=== PATIENT | female | born 1985 | race American Indian/Alaskan Native ===

== ENCOUNTER 2017-03-09 06:49 | Emergency (ER) | payer MEDICAID ==
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
[2017-03-09 12:36] VITALS: BP 118/66
== END 2017-03-09 12:35 | disposition home or self-care (01) ==
LOC: ED 06:49
DX: O9A.211 Injury, poisoning and certain other consequences of external causes complicating pregnancy, first trimester (principal); S02.82XA Fracture of other specified skull and facial bones, left side, initial encounter for closed fracture; E66.9 Obesity, unspecified; Z3A.01 Less than 8 weeks gestation of pregnancy; Y04.8XXA Assault by other bodily force, initial encounter; Y93.89 Activity, other specified; Y99.9 Unspecified external cause status; Y92.89 Other specified places as the place of occurrence of the external cause
CPT/HCPCS: 70450; 70486